=== PATIENT | male | born 1980 | race Caucasian/White ===

== ENCOUNTER → 2016-12-19 11:11 | Outpatient (CLI) | payer OTHER ==
--- NOTE | ~2016-12-19 | EC ---
PATIENT:THUY NICOLE DATE OF SERVICE: 12/19/16 SEX: M MEDICAL RECORD: [id number] DATE OF : [birth year] LOCATION:[facility] AGE OF PATIENT: 36 ADMISSION DATE: 12/19/16 REFERRING PHYSICIAN: INTERPRETING PHYSICIAN: TASH WILSON M.D. ECHOCARDIOGRAM REPORT ECHO CHARGES 4 ECHO COMPLETE CLINICAL DIAGNOSIS: SOB/FAMILY HX OF CAD/AND VALVULARY DISEASE ECHOCARDIOGRAPHIC MEASUREMENTS (adult normal given) AC root (d.<3.7cm) 4.5 LV Septum d (<1.2 cm> 1.3 Valve Excursion 1.5 LV Septum (systole) 1.5 Left Atria (s.<4.0cm> 4.8 LVPW d(<1.2cm) 1.3 RV (d.<2.3cm) 4.7 LVPW (sytole) 1.5 LV diastole(<5.6CM) 5.4 MV E-F(>70mm/sec) LV systole 3.9 LVOT Diameter 2.8 MV exc.(>10mm) 2.0 Est.ejection fraction (50-75%) Pericardial Effusion N DOPPLER: LVIT A 44.0 E 53.0 LA RVSP 19 LVOT 95 AOP1/2T Asc. Ao 128 RVOT 93 RA PA 153 AV Gradient Peak 6.51 AV Mean 4.02 AV Area 4.5 MV Gradient Peak 1.68 MV Mean 0.85 MV Area COMMENTS: Theology Professor: Judd SCHRADER Skiver Counter:2 Dr. Wilson TAPE# PACS DATE OF SERVICE: 12/19/2016 REFERRING PHYSICIAN: Contreras Devlin MD. INDICATION: Dyspnea. DESCRIPTION: Left ventricle demonstrates left ventricular hypertrophy. No regional wall motion abnormalities are noted. Estimated ejection fraction is 55%. Mitral valve is structurally normal. There is no regurgitation or prolapse seen. Left atrium is normal size. The aortic valve is trileaflet. I ECHOCARDIOGRAM REPORT [id number] THUY NICOLE do not see stenosis or regurgitation. The ascending aorta is lightly dilated at 4.5 cm. Right ventricle is mildly dilated. Tricuspid valve is normal. There is trivial regurgitation noted. Right atrium is normal size. There is no pericardial effusion noted. IMPRESSION: 1. Left ventricular hypertrophy with preserved ejection fraction of 55%. 2. Trivial tricuspid regurgitation. 3. Ascending aorta is slightly dilated at 4.5 cm, but given patient's size, this may be appropriate. TRANSINT:[id number] Voice Confirmation ID: [id number] DOCUMENT ID: [id number] TASH WILSON M.D. CC: [id number] DICTATION DATE: 12/20/16 0756 DIE MECHANIC: 12/20/16 1514 [facility] CLI 12/19/16 [facility] [address] [id number]
== END | disposition home or self-care (01) ==
LOC: D.ECHO 11:11
DX: R06.02 Shortness of breath (principal); Z82.49 Family history of ischemic heart disease and other diseases of the circulatory system